=== PATIENT | female | born 1955 | race Caucasian/White ===

== ENCOUNTER 2021-07-21 08:19 | Observation (INO) ==
[2021-07-21 08:56] LABS: Basophils % 0.3 % (0.0-0.8); Hemoglobin 12.6 GM/DL (12.0-16.0); Immature Granulocytes % 0.5 %; Immature Granulocytes Absolute 0.06 #; Lymphocytes # 0.9 10*3/uL (1.4-4.0); Lymphocytes % 6.9 % (21.3-54.2); Mean Corpuscular HGB Conc 32.3 GM/DL (32-36); Mean Corpuscular Volume 91.3 FL (87-102); Mean Platelet Volume 9.5 FL (9.6-12.0); Monocytes % 5.3 % (1.7-12.7); Platelet Count 203 T/CUMM (130-400); Red Blood Count 4.27 MC/CUMM (3.8-5.5); Red Cell Distribution Width 13.2 % (9.3-17.3); White Blood Count 12.7 T/CUMM (4-12)
[2021-07-21 09:17] LABS: Bacteria,Urine Occasional /HPF (Few); Bilirubin,Urine Negative (Negative); Blood, Urine Negative (Negative); Glucose,Urine (UA) Negative (Negative); Hyaline Casts,Urine 5 /LPF (0-3); Ketones,Urine Negative (Negative); Mucus,Urine Occasional /LPF (Occasional); Nitrite,Urine Negative (Negative); Protein,Urine Negative; RBC,Urine 1 /HPF (0-4); Squamous Epithelial Cell,Urine Occasional /HPF (0-10); Urine Appearance CLEAR (Clear); Urine Color Straw (Yellow); Urine Specific Gravity 1.008 (1.001-1.035); Urine Urobilinogen < 2.0 EU/DL (0.2-1.0)
[2021-07-21 09:21] LABS: Alanine Aminotransferase 22 U/L (13-56); Albumin 3.1 G/DL (3.4-5.0); Alkaline Phosphatase 83 U/L (45-117); Aspartate Amino Transferase 12 U/L (0-37); Bilirubin,Total < 0.39 MG/DL (0.20-1.00); Blood Urea Nitrogen 23 MG/DL (7-18); Calcium 8.6 MG/DL (8.5-10.1); Carbon Dioxide 26 MMOL/L (21-32); Estimated Glom Filtration Rate 76 ML/MIN; Glucose 120 MG/DL (74-106); Osmolality,Calculated 281.5 MOS/KG (273-304); Potassium 4.2 MMOL/L (3.5-5.1); Sodium 139 MMOL/L (136-145); Total Protein 5.9 G/DL (6.4-8.2)
[2021-07-21] MEDS ORDERED: AZITHROMYCIN 250 MG TABLET PO STA (09:52)
[2021-07-21] MEDS ORDERED: cefTRIAXone 1,000 MG in SODIUM CHLORIDE 0.9% 100 ML IV STA (09:52)
[2021-07-21] MEDS ORDERED: ZALEPLON 5 MG CAPSULE PO PRN (10:55)
[2021-07-21] MEDS ORDERED: ONDANSETRON 4 MG/2 ML VIAL IV PRN (10:55)
[2021-07-21] MEDS ORDERED: hydrALAZINE 20 MG/1 ML VIAL IV PRN (10:55)
[2021-07-21] MEDS ORDERED: ACETAMINOPHEN 325 MG TABLET PO PRN (10:55)
[2021-07-21] MEDS ORDERED: DEXTROSE 50% 25 GM/50 ML VIAL IV PRN (10:55)
[2021-07-21] MEDS ORDERED: GLUCAGON 1 MG VIAL IM PRN (10:55)
[2021-07-21] MEDS ORDERED: buPROPion XL 150 MG TABLET PO SCH (11:00)
[2021-07-21] MEDS ORDERED: NON-FORMULARY MEDICATION (Magnesium Oxide 400 mg magnesium Tablet) PO SCH (11:00)
[2021-07-21] MEDS ORDERED: MELATONIN 3 MG TABLET PO PRN (11:10)
[2021-07-21] MEDS ORDERED: ALBUTEROL 2.5 MG/3 ML NEB RESP TX PRN (11:12)
[2021-07-21] MEDS: ENOXAPARIN 40 MG/0.4 ML SYRINGE SUBCUT SCH (11:20)
[2021-07-21 13:07] LABS: Risk Ratio 2.29; Thyroid Stimulating Hormone 2.49 uIU/ml (0.358-3.74); VLDL Cholesterol 14.4 MG/DL
[2021-07-21] MEDS ORDERED: clonazePAM 0.5 MG TABLET PO PRN (15:43)
[2021-07-21] MEDS: ALBUTEROL/IPRATROPIUM 3 ML NEB RESP TX SCH ×3 (17:06→21:10)
[2021-07-21] MEDS: carvediloL 25 MG TABLET PO SCH (17:24)
[2021-07-21] MEDS: RANOLAZINE 500 MG TABLET PO SCH (20:35)
[2021-07-21] MEDS: ROSUVASTATIN 20 MG TABLET PO SCH (20:35)
[2021-07-22] MEDS: ALBUTEROL/IPRATROPIUM 3 ML NEB RESP TX SCH ×4 (01:00→21:31)
[2021-07-22] MEDS: PANTOPRAZOLE 40 MG TABLET PO SCH (06:27)
[2021-07-22 06:52] LABS: Basophils % 0.3 % (0.0-0.8); Hematocrit 35.9 VOL% (35.7-47.0); Hemoglobin 11.7 GM/DL (12.0-16.0); Immature Granulocytes % 0.5 %; Immature Granulocytes Absolute 0.05 #; Lymphocytes # 1.6 10*3/uL (1.4-4.0); Lymphocytes % 16.2 % (21.3-54.2); Mean Corpuscular HGB Conc 32.6 GM/DL (32-36); Mean Corpuscular Volume 93.2 FL (87-102); Mean Platelet Volume 9.9 FL (9.6-12.0); Monocytes % 7.9 % (1.7-12.7); Neutrophils % 75.1 % (38.7-73.9); Platelet Count 187 T/CUMM (130-400); Red Blood Count 3.85 MC/CUMM (3.8-5.5); Red Cell Distribution Width 13.6 % (9.3-17.3); White Blood Count 10.1 T/CUMM (4-12)
[2021-07-22 07:06] LABS: Calcium 8.6 MG/DL (8.5-10.1); Osmolality,Calculated 282.1 MOS/KG (273-304); Potassium 3.7 MMOL/L (3.5-5.1)
[2021-07-22] MEDS ORDERED: MAGNESIUM SULF RIDER 4 GM/100 ML PREMIX IV PRN (07:38)
[2021-07-22] MEDS ORDERED: MAGNESIUM SULF RIDER 2 GM/50 ML PREMIX IV PRN (07:38)
[2021-07-22] MEDS ORDERED: NON-FORMULARY MEDICATION (Umeclidinium [Incruse Ellipta] 62.5 mcg/actuation Blister With D INH SCH (09:00)
[2021-07-22] MEDS: ESCITALOPRAM 10 MG TABLET PO SCH (09:53)
[2021-07-22] MEDS: RANOLAZINE 500 MG TABLET PO SCH ×2 (09:53→20:12)
[2021-07-22] MEDS: carvediloL 25 MG TABLET PO SCH ×2 (09:53→18:05)
[2021-07-22] MEDS: buPROPion XL 150 MG TABLET PO SCH (09:53)
[2021-07-22] MEDS: FUROSEMIDE 20 MG TABLET PO SCH (09:53)
[2021-07-22] MEDS: ASPIRIN EC 81 MG TABLET PO SCH (09:54)
[2021-07-22] MEDS: AZITHROMYCIN INJ 500 MG in SODIUM CHLORIDE 0.9% 250 ML IV SCH (09:54)
[2021-07-22] MEDS: BREO INH SCH (09:57)
[2021-07-22] MEDS: LOSARTAN 25 MG TABLET PO SCH (09:57)
[2021-07-22] MEDS: cefTRIAXone 1,000 MG in SODIUM CHLORIDE 0.9% 100 ML IV SCH (14:26)
[2021-07-22] MEDS: ENOXAPARIN 40 MG/0.4 ML SYRINGE SUBCUT SCH (14:27)
[2021-07-22] MEDS: ROSUVASTATIN 20 MG TABLET PO SCH (20:12)
[2021-07-23] MEDS: ALBUTEROL/IPRATROPIUM 3 ML NEB RESP TX SCH ×3 (01:37→13:26)
[2021-07-23] MEDS: PANTOPRAZOLE 40 MG TABLET PO SCH (05:34)
[2021-07-23] MEDS: buPROPion XL 150 MG TABLET PO SCH (08:54)
[2021-07-23] MEDS: LOSARTAN 25 MG TABLET PO SCH (08:55)
[2021-07-23] MEDS: carvediloL 25 MG TABLET PO SCH ×2 (08:55→17:24)
[2021-07-23] MEDS: FUROSEMIDE 20 MG TABLET PO SCH (08:55)
[2021-07-23] MEDS: ASPIRIN EC 81 MG TABLET PO SCH (08:55)
[2021-07-23] MEDS: RANOLAZINE 500 MG TABLET PO SCH (08:55)
[2021-07-23] MEDS: ESCITALOPRAM 10 MG TABLET PO SCH (08:55)
[2021-07-23] MEDS: AZITHROMYCIN INJ 500 MG in SODIUM CHLORIDE 0.9% 250 ML IV SCH (09:02)
[2021-07-23] MEDS: BREO INH SCH (09:07)
[2021-07-23] MEDS: cefTRIAXone 1,000 MG in SODIUM CHLORIDE 0.9% 100 ML IV SCH (10:20)
[2021-07-23] MEDS: ENOXAPARIN 40 MG/0.4 ML SYRINGE SUBCUT SCH (10:20)
[2021-07-23 16:41] VITALS: BP 143/85
[2021-07-24] MEDS ORDERED: MAGNESIUM OXIDE 400 MG TABLET PO SCH (09:00)
== END 2021-07-23 19:00 | disposition home or self-care (01) ==
LOC: SUATTDRO → N.ED 08:19 → N.EDINP 08:19 → N.5E 14:05 → SUATTDRO 07-22 13:14
PROVIDERS: ADMIT Internal Medicine; ATTEND Internal Medicine